=== PATIENT | female | born 1965 | race Caucasian/White ===

== ENCOUNTER 2016-11-02 18:49 | Emergency (ER) | payer OTHER ==
[2016-11-02 19:45] LABS: HEMOGLOBIN 12.4 gm/dl (12.3-15.3); RED BLOOD COUNT 4.68 M/UL (4.00-5.10); WHITE BLOOD COUNT 12.6 K/UL (4.5-11.0)
[2016-11-02 20:08] LABS: BUN/CREATININE RATIO 19 (0-10)
== END 2016-11-03 00:57 | disposition home or self-care (01) ==
LOC: ER1 18:49
PROVIDERS: Nurse Practitioner Family
DX: N93.9 Abnormal uterine and vaginal bleeding, unspecified (principal); R10.817 Generalized abdominal tenderness; Z88.8 Allergy status to other drugs, medicaments and biological substances
CPT/HCPCS: 36415; 80053; 81001; 82150; 83690; 84703; 85025; 87086; 96374; 99284; J1885; J7050; Q9962

== ENCOUNTER 2021-08-11 11:07 | Emergency (ER) | payer OTHER ==
[2021-08-11 12:02] LABS: RED BLOOD COUNT 4.81 M/UL (4.00-5.10); WHITE BLOOD COUNT 8.3 K/UL (4.5-11.0)
[2021-08-11 12:31] LABS: BUN/CREATININE RATIO 12 (0-10)
[2021-08-11] MEDS ORDERED: ZOFRAN 4 MG TAB4 MG PO (14:04)
[2021-08-11] MEDS ORDERED: K-TAB ER20 MEQ PO (14:04)
[2021-08-11] MEDS ORDERED: OMNICEF 300 MG300 MG PO (14:04)
== END 2021-08-11 14:30 | disposition home or self-care (01) ==
LOC: ER1 11:07
PROVIDERS: Physician Assistant
DX: N39.0 Urinary tract infection, site not specified (principal); E87.6 Hypokalemia; Z91.09 Other allergy status, other than to drugs and biological substances
CPT/HCPCS: 80053; 81001; 82550; 82553; 83605; 83690; 84484; 85025; 87077; 87086; 87186; 93005; 96374; 96375; 99284; J0696; J2270; J2405; Q9967